=== PATIENT | male | born 1955 | race Caucasian/White ===

== ENCOUNTER → 2020-12-19 | Outpatient (CLI) | payer OTHER ==
[~2020-12-19] MED LIST: ASPIR 8181 MG PO; AUGMENTIN 875875 MG PO; AVAPRO300 MG PO; BENADRYL25 MG PO; FLAGYL500 MG PO; HYDROCODONE-AP1 EAC6 PO; IBUPROFEN 400400 M2 PO; KRILL OIL500 MG PO; LIPITOR10 MG PO; NEXIUM40 MG PO; NORVASC5 MG PO; PHENERGAN 25 MG25 M1 PO
== END ==
LOC: SJCVCIMAG 11:15
PROVIDERS: ATTEND Family Medicine
DX: I08.1 Rheumatic disorders of both mitral and tricuspid valves (principal); E78.5 Hyperlipidemia, unspecified; I10 Essential (primary) hypertension